=== PATIENT | male | born 1950 | race Caucasian/White ===

== ENCOUNTER 2019-02-05 23:16 | Emergency (ER) | payer MEDICARE ==
[~2019-02-05] VITALS: Ht 175.3 cm; Wt 90.0 kg
[2019-02-05 23:25] VITALS: BP 136/100; TEMP 97.6
[2019-02-06 01:00] VITALS: PULSE 53
== END 2019-02-06 01:02 | disposition home or self-care (01) ==
LOC: COL.ER 23:16
DX: S93.115A Dislocation of interphalangeal joint of left lesser toe(s), initial encounter (principal); Z87.891 Personal history of nicotine dependence; W22.8XXA Striking against or struck by other objects, initial encounter; Y92.009 Unspecified place in unspecified non-institutional (private) residence as the place of occurrence of the external cause